=== PATIENT | female | born 1980 | race Caucasian/White ===

== ENCOUNTER 2019-12-14 10:17 | Emergency (ER) | payer OTHER ==
[~2019-12-14] VITALS: Ht 175.3 cm; Wt 95.5 kg
[2019-12-14 10:25] VITALS: Ht 175.3 cm; Wt 95.5 kg
[2019-12-14] MEDS ORDERED: ULTRAM50 MG PO (12:02)
[2019-12-14 12:10] VITALS: BP 119/75
== END 2019-12-14 12:11 | disposition home or self-care (01) ==
LOC: D.ER 10:17
DX: M54.5 Low back pain (principal); S13.4XXA Sprain of ligaments of cervical spine, initial encounter; V89.2XXA Person injured in unspecified motor-vehicle accident, traffic, initial encounter; Y93.9 Activity, unspecified; Y92.9 Unspecified place or not applicable; M54.2 Cervicalgia